=== PATIENT | female | born 2000 | race Caucasian/White ===

== ENCOUNTER 2019-01-24 17:00 | Emergency (ER) | payer OTHER ==
[~2019-01-24] VITALS: Ht 167.6 cm; Wt 108.9 kg
[~2019-01-24 17:00] MED LIST: ALBUTEROL0.09 MG/A2 IH; AMOXICILLIN500 MG PO; AMOXIL250 M1 PO; AMOXIL500 MG PO; BIAXIN500 MG PO; BIOTIN1 M1 PO; CLARITIN10 MG PO; DELTASONE20 MG PO; KEFLEX500 MG PO; MOTRIN600 MG PO; MOTRIN800 MG PO; NKHM; ROXICET 325 MG240 ML PO; TYLENOL WITH CO1 TA1 PO; ULTRAM50 MG PO; ZOFRAN ODT4 MG SL; ZYRTEC10 MG PO
[2019-01-24 17:03] VITALS: BP 112/78
[2019-01-24 17:30] LABS: BASO % 0.2 % (0.0-1.0); EOS # 0.2 10*3/uL (0.0-0.4); EOS % 2.4 % (1.0-4.0); HEMATOCRIT 40.8 % (37.0-47.0); HEMOGLOBIN 13.9 g/dl (12.0-16.0); LYMPH # 2.7 10*3/uL (1.3-4.4); LYMPH % 27.6 % (27.0-41.0); MEAN CORPUSCULAR HGB 35.1 pg (27.0-31.0); MEAN CORPUSCULAR HGB CONC 34.1 g/dl (33.0-37.0); MEAN PLATELET VOLUME 8.5 fl (9.6-12.3); MONO # 0.8 10*3/uL (0.1-1.0); MONO % 7.6 % (3.0-9.0); NEUT # 6.2 10*3/uL (2.3-7.9); NEUT % 61.9 % (47.0-73.0); PLATELET COUNT AUTOMATED 242 10*3/uL (130-400); RED BLOOD COUNT 3.96 10*6/uL (4.10-5.10); RED CELL DISTRI WIDTH 11.7 % (0-14.5); WHITE BLOOD COUNT 9.9 10*3/uL (4.8-10.8)
[2019-01-24 17:46] LABS: ALBUMIN 3.5 gm/dl (3.1-4.5); ALKALINE PHOSPHATASE 176 U/L (45-117); BUN 14 mg/dl (7-24); CHLORIDE 109 mmol/L (98-107); CREATININE 0.83 mg/dL (0.55-1.02); LIPASE 131 U/L (73-393); POTASSIUM 3.6 mmol/L (3.5-5.1); SGOT/AST 64 IU/L (3-35); SGPT/ALT 87 U/L (12-78); SODIUM 140 mmol/L (136-145); TOTAL PROTEIN 7.4 gm/dL (6.4-8.2)
[2019-01-24 18:03] LABS: BILIRUBIN NEGATIVE (NEGATIVE); BLOOD 3+ (NEGATIVE); CLARITY SL CLOUDY (CLEAR); COLOR YELLOW (YELLOW); GLUCOSE NEGATIVE (NEGATIVE); KETONE NEGATIVE (NEGATIVE); LEUKO ESTERASE TRACE (NEGATIVE); NITRITE NEGATIVE (NEGATIVE); PH 5.5 (5.0-9.0); SPECIFIC GRAVITY >= 1.030 (1.005-1.030); UROBILINOGEN 0.2 E.U./dl (0.2-1.0)
[2019-01-24 18:10] LABS: BACTERIA 2+; RBC TNTC rbc/hpf (0-2)
[2019-01-24] MEDS ORDERED: KEFLEX500 M1 PO (19:56)
== END 2019-01-24 20:08 | disposition home or self-care (01) ==
LOC: ED 17:00
PROVIDERS: Physician Assistant
DX: N39.0 Urinary tract infection, site not specified (principal); K80.20 Calculus of gallbladder without cholecystitis without obstruction; R94.5 Abnormal results of liver function studies; Z97.5 Presence of (intrauterine) contraceptive device

== ENCOUNTER → 2020-12-24 | Outpatient (CLI) | payer OTHER ==
[~2020-12-24] MED LIST changes: +KEFLEX500 M1 PO
== END | disposition home or self-care (01) ==
LOC: US 12:59
PROVIDERS: ATTEND Nurse Practitioner
DX: Z30.431 Encounter for routine checking of intrauterine contraceptive device (principal); N94.10 Unspecified dyspareunia

== ENCOUNTER 2021-08-25 11:20 | Emergency (ER) | payer OTHER ==
[~2021-08-25] VITALS: Ht 167.6 cm; Wt 97.5 kg
[2021-08-25 11:25] VITALS: BP 114/54
== END 2021-08-25 12:20 | disposition left against medical advice (07) ==
LOC: ED 11:20
DX: Z53.21 Procedure and treatment not carried out due to patient leaving prior to being seen by health care provider (principal)

== ENCOUNTER → 2023-04-05 | Outpatient (CLI) | payer OTHER ==
[2023-04-05 12:30] LABS: BASO % 0.2 % (0.0-1.0); EOS # 0.1 10*3/uL (0.0-0.4); EOS % 1.1 % (1.0-4.0); HEMATOCRIT 45.3 % (37.0-47.0); LYMPH % 26.6 % (27.0-41.0); MEAN CELL VOLUME 103.2 fl (81.0-99.0); MEAN CORPUSCULAR HGB 35.1 pg (27.0-31.0); MEAN PLATELET VOLUME 8.7 fl (9.6-12.3); MONO # 0.6 10*3/uL (0.1-1.0); MONO % 5.6 % (3.0-9.0); NEUT # 7.5 10*3/uL (2.3-7.9); NEUT % 66.1 % (47.0-73.0); PLATELET COUNT AUTOMATED 212 10*3/uL (130-400); RED BLOOD COUNT 4.39 10*6/uL (4.10-5.10); RETICULOCYTE % 1.25 % (0.50-2.50); WHITE BLOOD COUNT 11.3 10*3/uL (4.8-10.8)
[2023-04-05 12:31] LABS: BILIRUBIN Negative (Negative); BLOOD Negative (Negative); CLARITY Clear (Clear); COLOR Yellow (Yellow); GLUCOSE Negative (Negative); KETONE Negative (Negative); LEUKO ESTERASE Negative (Negative); NITRITE Negative (Negative); PH 6.5 (4.5-8.0); UROBILINOGEN 0.2 E.U./dl (0.0-1.0)
[2023-04-05 12:37] LABS: BACTERIA TRACE; WBC 0-2 wbc/hpf (0-5)
[2023-04-05 13:06] LABS: VITAMIN D, 25-HYDROXY 35.4 ng/mL (30-100)
[2023-04-05 13:08] LABS: ALKALINE PHOSPHATASE 110 U/L (46-116); BUN 5 mg/dl (9-23); CHLORIDE 105 mmol/L (98-107); CHOLESTEROL 115 mg/dL (<200); GAMMA GLUTAMYL TRANSPEPTIDASE 41 U/L (0-73); LDL CHOLESTEROL 57 mg/dL (9-159); POTASSIUM 3.8 mmol/L (3.4-5.1); SGPT/ALT 8 U/L (10-49); T3 UPTAKE 25.2 % (22.4-36.7); THYROXINE (T4) TOTAL 7.9 ug/dl (4.5-10.9); TOTAL PROTEIN 7.7 gm/dL (6.0-8.0); TRIGLYCERIDES 106 mg/dl (<150)
[2023-04-06 12:08] LABS: ANTI-DSDNA ANTIBODIES 7 IU/mL (0-9)
== END | disposition home or self-care (01) ==
LOC: LAB 11:49
PROVIDERS: ATTEND Family Medicine
DX: E78.5 Hyperlipidemia, unspecified (principal); E55.9 Vitamin D deficiency, unspecified; R53.83 Other fatigue; R79.89 Other specified abnormal findings of blood chemistry; R74.8 Abnormal levels of other serum enzymes

== ENCOUNTER 2023-09-28 12:07 | Emergency (ER) | payer OTHER ==
[~2023-09-28] VITALS: Wt 89.8 kg
[2023-09-28 12:50] VITALS: BP 116/54
[2023-09-28 14:08] LABS: BASO % 0.2 % (0.0-1.0); EOS # 0.2 10*3/uL (0.0-0.4); EOS % 1.2 % (1.0-4.0); HEMATOCRIT 45.6 % (37.0-47.0); LYMPH # 2.2 10*3/uL (1.3-4.4); LYMPH % 16.7 % (27.0-41.0); MEAN CELL VOLUME 105.8 fl (81.0-99.0); MEAN CORPUSCULAR HGB 35.3 pg (27.0-31.0); MEAN CORPUSCULAR HGB CONC 33.3 g/dl (33.0-37.0); MEAN PLATELET VOLUME 9.2 fl (9.6-12.3); MONO # 0.7 10*3/uL (0.1-1.0); MONO % 5.5 % (3.0-9.0); NEUT # 9.7 10*3/uL (2.3-7.9); NEUT % 74.6 % (47.0-73.0); PLATELET COUNT AUTOMATED 225 10*3/uL (130-400); RED BLOOD COUNT 4.31 10*6/uL (4.10-5.10); RED CELL DISTRI WIDTH 11.5 % (0-14.5)
[2023-09-28 14:19] LABS: ALKALINE PHOSPHATASE 91 U/L (46-116); BUN 7 mg/dl (9-23); CHLORIDE 107 mmol/L (98-107); LIPASE 32 U/L (12-53); POTASSIUM 4.2 mmol/L (3.4-5.1); SGPT/ALT 14 U/L (5-49); TOTAL PROTEIN 7.2 gm/dL (6.0-8.0)
[2023-09-28 14:20] LABS: BETA-HCG, QUANT < 3.0 mIU/mL (3-10)
[2023-09-28 15:30] LABS: BILIRUBIN Negative (Negative); BLOOD Negative (Negative); CLARITY Clear (Clear); COLOR Yellow (Yellow); GLUCOSE Negative (Negative); KETONE Negative (Negative); LEUKO ESTERASE Negative (Negative); NITRITE Negative (Negative); SPECIFIC GRAVITY 1.015 (1.001-1.030); UROBILINOGEN 0.2 E.U./dl (0.0-1.0)
[2023-09-28 16:08] LABS: BACTERIA 2+
== END 2023-09-28 16:52 | disposition home or self-care (01) ==
LOC: ED 12:07
PROVIDERS: Nurse Practitioner
DX: R10.31 Right lower quadrant pain (principal); R11.2 Nausea with vomiting, unspecified; F32.A Depression, unspecified; J45.909 Unspecified asthma, uncomplicated; R10.2 Pelvic and perineal pain

== ENCOUNTER → 2023-10-06 | Outpatient (CLI) | payer OTHER ==
[2023-10-06 10:11] LABS: BASO % 0.2 % (0.0-1.0); EOS # 0.2 10*3/uL (0.0-0.4); EOS % 1.9 % (1.0-4.0); HEMATOCRIT 43.5 % (37.0-47.0); LYMPH # 2.4 10*3/uL (1.3-4.4); LYMPH % 27.5 % (27.0-41.0); MEAN CELL VOLUME 106.6 fl (81.0-99.0); MEAN CORPUSCULAR HGB CONC 33.8 g/dl (33.0-37.0); MEAN PLATELET VOLUME 8.9 fl (9.6-12.3); MONO # 0.7 10*3/uL (0.1-1.0); MONO % 7.7 % (3.0-9.0); NEUT # 5.5 10*3/uL (2.3-7.9); NEUT % 62.5 % (47.0-73.0); PLATELET COUNT AUTOMATED 198 10*3/uL (130-400); RED BLOOD COUNT 4.08 10*6/uL (4.10-5.10); RED CELL DISTRI WIDTH 11.6 % (0-14.5); WHITE BLOOD COUNT 8.9 10*3/uL (4.8-10.8)
[2023-10-06 10:12] LABS: BILIRUBIN Negative (Negative); BLOOD Negative (Negative); CLARITY Clear (Clear); COLOR Yellow (Yellow); GLUCOSE Negative (Negative); KETONE Negative (Negative); LEUKO ESTERASE Negative (Negative); NITRITE Negative (Negative); PH 5.5 (4.5-8.0); UROBILINOGEN 0.2 E.U./dl (0.0-1.0)
[2023-10-06 10:35] LABS: BACTERIA TRACE; RBC 0-2 rbc/hpf (0-2); WBC 0-2 wbc/hpf (0-5)
[2023-10-06 10:44] LABS: ALKALINE PHOSPHATASE 137 U/L (46-116); BUN 8 mg/dl (9-23); CHLORIDE 111 mmol/L (98-107); CHOLESTEROL 125 mg/dL (<200); GAMMA GLUTAMYL TRANSPEPTIDASE 34 U/L (0-73); LDL CHOLESTEROL 58 mg/dL (9-159); POTASSIUM 4.1 mmol/L (3.4-5.1); SGPT/ALT 13 U/L (5-49); TRIGLYCERIDES 105 mg/dl (<150)
[2023-10-06 10:48] LABS: VITAMIN D, 25-HYDROXY 25.4 ng/mL (30-100)
== END | disposition home or self-care (01) ==
LOC: LAB 09:36
PROVIDERS: ATTEND Family Medicine
DX: E55.9 Vitamin D deficiency, unspecified (principal); R79.89 Other specified abnormal findings of blood chemistry; R53.83 Other fatigue; E78.5 Hyperlipidemia, unspecified

== ENCOUNTER → 2024-06-12 | Outpatient (CLI) | payer OTHER | END | disposition home or self-care (01) | LOC: LAB 12:31 | PROVIDERS: ATTEND Nurse Practitioner Women's Health | DX: N91.2 Amenorrhea, unspecified (principal) ==

== ENCOUNTER 2025-06-13 18:35 | Emergency (ER) | payer OTHER ==
[~2025-06-13] VITALS: Ht 165.1 cm; Wt 88.9 kg
[2025-06-13 18:51] VITALS: BP 104/61
[2025-06-13] MEDS ORDERED: NAPROSYN500 MG PO (20:35)
== END 2025-06-13 20:47 | disposition home or self-care (01) ==
LOC: ED 18:35
DX: S00.83XA Contusion of other part of head, initial encounter (principal); J45.909 Unspecified asthma, uncomplicated; F32.A Depression, unspecified; Z32.02 Encounter for pregnancy test, result negative; Z79.899 Other long term (current) drug therapy; W18.39XA Other fall on same level, initial encounter; Y93.89 Activity, other specified; Y92.89 Other specified places as the place of occurrence of the external cause; Y99.8 Other external cause status

== ENCOUNTER → 2025-08-08 | Outpatient (CLI) | payer OTHER ==
[~2025-08-08] MED LIST changes: +NAPROSYN500 MG PO
[2025-08-08 10:50] LABS: BASO # 0.0 10*3/uL (0.0-0.1); BASO % 0.1 % (0.0-1.0); EOS # 0.3 10*3/uL (0.0-0.4); EOS % 3.1 % (1.0-4.0); MEAN CELL VOLUME 107.9 fl (81.0-99.0); MEAN CORPUSCULAR HGB 36.1 pg (27.0-31.0); MEAN PLATELET VOLUME 8.7 fl (9.6-12.3); MONO # 0.5 10*3/uL (0.1-1.0); MONO % 5.6 % (3.0-9.0); NEUT # 4.7 10*3/uL (2.3-7.9); NEUT % 57.2 % (47.0-73.0); NUCLEATED RED BLOOD CELL 0.0 % (0.0-0.0); NUCLEATED RED BLOOD CELL 0.0 10*3/uL (0.0-0.0); PLATELET COUNT AUTOMATED 249 10*3/uL (130-400); RED CELL DISTRI WIDTH 11.7 % (0-14.5); RETICULOCYTE % 1.71 % (0.50-2.50)
[2025-08-08 10:51] LABS: BILIRUBIN Negative (Negative); BLOOD Negative (Negative); CLARITY Clear (Clear); COLOR Yellow (Yellow); KETONE Negative (Negative); LEUKO ESTERASE Negative (Negative); NITRITE Negative (Negative); PH 6.0 (4.5-8.0); SPECIFIC GRAVITY 1.020 (1.001-1.030); UROBILINOGEN 0.2 E.U./dl (0.0-1.0)
[2025-08-08 11:17] LABS: BACTERIA TRACE; WBC 0-2 wbc/hpf (0-5)
[2025-08-08 11:39] LABS: BUN 10 mg/dl (9-23); GAMMA GLUTAMYL TRANSFERASE 100 U/L (0-38); LDL CHOLESTEROL 40 mg/dL (9-159); SGPT/ALT 49 U/L (5-49)
[2025-08-08 11:41] LABS: VITAMIN D, 25-HYDROXY 41.2 ng/mL (30-100)
== END | disposition home or self-care (01) ==
LOC: LAB 10:18
PROVIDERS: ATTEND Family Medicine
DX: R79.89 Other specified abnormal findings of blood chemistry (principal); R53.83 Other fatigue; R78.5 Finding of other psychotropic drug in blood; E55.9 Vitamin D deficiency, unspecified